=== PATIENT | female | born 1945 | race Caucasian/White ===

== ENCOUNTER 2016-12-08 18:23 | Emergency (ER) | payer MEDICARE, OTHER ==
[~2016-12-08] VITALS: Ht 154.9 cm; Wt 89.7 kg
[2016-12-08 18:39] VITALS: TEMP 98.7
[2016-12-08] MEDS ORDERED: SYNTHROID0.1 MG/TAB PO (19:05)
[2016-12-08] MEDS ORDERED: DITROPAN 5MG TAB5 MG PO (19:06)
[2016-12-08] MEDS ORDERED: PROLIA60 MG/ML INJ (19:07)
[2016-12-08] MEDS ORDERED: GLUCOPHAGE XR750 MG PO (19:07)
[2016-12-08] MEDS ORDERED: COZAAR 50MG50 MG/TAB PO (19:08)
[2016-12-08] MEDS ORDERED: EFFEXOR XR37.5 MG/CA PO (19:08)
[2016-12-08] MEDS ORDERED: CRESTOR40 MG PO (19:09)
[2016-12-08] MEDS ORDERED: EFFEXOR 3737.5 MG/TA PO (19:09)
[2016-12-08] MEDS ORDERED: OSCAL 500 TAB500 MG PO (19:10)
[2016-12-08] MEDS ORDERED: NAPROSYN500 MG PO (19:10)
[2016-12-08] MEDS ORDERED: MULTI VITAMINS1 TAB PO (19:10)
[2016-12-08] MEDS ORDERED: PROBIOTIC FORMU1 CAP PO (19:11)
[2016-12-08] MEDS ORDERED: ASPIRIN 81M81 MG/TA2 PO (19:11)
[2016-12-08 19:17] LABS: BASO % 0.1 % (0.0-2.0); EOS # 0.4 (0.0-0.7); EOS % 5.3 % (0-4.0); GRAN # 3.7 (1.4-6.5); GRAN % 50.2 % (42.2-75.2); HEMATOCRIT 40.7 % (37.0-47.0); HEMOGLOBIN 12.8 g/dl (12.5-16.0); LYMPH # 2.4 (1.2-3.4); LYMPH % 33.3 % (20.0-51.0); MEAN CELL VOLUME 86 fl (80.0-100.0); MEAN CORPUSCULAR HEMOGLOBIN 27 pg (27.0-31.0); MEAN CORPUSCULAR HGB CONC 31 g/dl (33.0-37.0); MEAN PLATELET VOLUME 9.7 fl (7.4-10.4); MONO # 0.8 (0.1-0.6); MONO % 10.7 % (1.7-9.3); PLATELET COUNT 225 K/mm3 (130-400); RED BLOOD COUNT 4.71 M/mm3 (4.10-5.30); WHITE BLOOD COUNT 7.3 K/mm3 (4.8-10.8)
[2016-12-08 19:21] LABS: PROTHROMBIN TIME 10.6 SECONDS (9.7-12.8)
[2016-12-08 19:31] LABS: ADJUSTED CALCIUM 9.3 mg/dL (8.4-10.2); ALBUMIN 4.2 gm/dL (3.5-5.0); BILIRUBIN,TOTAL 0.5 mg/dL (0.0-1.0); CALCIUM 9.5 mg/dL (8.4-10.2); CREATININE, serum 0.87 mg/dL (0.52-1.25); POTASSIUM 4.5 mmol/L (3.4-5.0); TOTAL PROTEIN 7.1 gm/dL (6.4-8.2)
[2016-12-08 21:21] VITALS: BP 140/84; PULSE 90
== END 2016-12-08 21:22 | disposition home or self-care (01) ==
LOC: COL.ER 18:23
PROVIDERS: Emergency Medicine
DX: N93.8 Other specified abnormal uterine and vaginal bleeding (principal); E11.9 Type 2 diabetes mellitus without complications; I10 Essential (primary) hypertension; E03.9 Hypothyroidism, unspecified; E78.00 Pure hypercholesterolemia, unspecified; Z79.84 Long term (current) use of oral hypoglycemic drugs; Z79.82 Long term (current) use of aspirin; Z96.653 Presence of artificial knee joint, bilateral